=== PATIENT | female | born 1950 | race Caucasian/White ===

== ENCOUNTER 2019-05-26 04:20 | Inpatient (IN) ==
[2019-05-26] MEDS ORDERED: ZOSYN 4.5 GM in NS 100 ML IV ONE (04:25)
[2019-05-26] MEDS ORDERED: SOLU-MEDROL IV ONE (04:25)
--- NOTE | 2019-05-26 04:34 | PROVIDER DOCUMENTATION ---
HPI-General Adult - General Chief Complaint: Shortness of Breath Stated Complaint: SOB Time Seen by Provider: 05/26/19 04:23 Source: patient, family Allergies/Adverse Reactions: Patient Allergies Allergy/AdvReac Type Severity Reaction Status Date / Time metoprolol tartrate * Allergy ANAPHYLAXIS Verified 05/26/19 04:40 [From Lopressor] Penicillins Allergy ANAPHYLAXIS Verified 05/26/19 04:40 Sulfa (Sulfonamide Allergy ANAPHYLAXIS Verified 05/26/19 04:40 Antibiotics) nifedipine [From Procardia] AdvReac ANAPHYLAXIS Verified 05/26/19 04:40 "mycins" Allergy ANAPHYLAXIS Uncoded 05/26/19 04:40 Home Medications: Home Medication List Medication Instructions Recorded Confirmed Last Taken Type Amlodipine Besylate [Norvasc] 10 mg PO DAILY 07/11/14 05/26/19 Unknown History Levothyroxine [Synthroid] 137 mcg PO DAILY 07/11/14 05/26/19 Unknown History Montelukast [Singulair] 10 mg PO DAILY 07/11/14 05/26/19 Unknown History Omeprazole/Sodium Bicarbonate 20 mg PO DAILY 07/11/14 05/26/19 Unknown History [Zegerid 20 mg] Ergocalciferol (Vitamin D2) 50,000 unit PO DIRECTED 05/26/19 05/26/19 Unknown History [Vitamin D2] - History of Present Illness -Gen Adult Nature of Presenting Problems: Presents to the with complaints of difficulty swallowing and SOB. Son who is CLOAK ROOM ATTENDANT here at the hospital states that she was seen by her PCP Dr khan today and they were concerned about salivary gland swelling and they did a chest xr. They were supposed to go for a CT of the neck tomorrow but tonight things escalated and got worse and they decided to come in. She states she feels as if she were to throw up it would go right back down and she endorses SOB. She has not tried anything at home. She wears partial dentures. Review of Systems - Adult - REVIEW OF SYSTEMS - ADULT Constitutional: reports: see HPI Eyes: reports: no symptoms reported Ears, Nose, Mouth & Throat: reports: see HPI Cardiovascular: reports: no symptoms reported Respiratory: reports: see HPI Gastrointestinal: reports: see HPI, nausea Genitourinary: reports: no symptoms reported Musculoskeletal: reports: no symptoms reported Integumentary: reports: no symptoms reported Neurological: reports: no symptoms reported Psychiatric: reports: no symptoms reported Endocrine: reports: no symptoms reported Hematologic/Lymphatic: reports: no symptoms reported Allergic/Immunologic: reports: no symptoms reported All Other Systems: Reviewed and Negative Past History - Adult - PAST MEDICAL HISTORY-ADULT Review of Records: reports: Old Records Reviewed Major Childhood Illnesses: reports: denies history Cardiovascular: reports: HTN, hyperlipidemia Gastrointestinal: reports: GERD Musculoskeletal: reports: fibromyalgia Endocrine/Immune: reports: thyroid disorder - PRIOR SURGERIES/PROCEDURES Surgical/Procedure History: reports: appendectomy, cholecystectomy, hysterectomy - IMMUNIZATION STATUS Childhood Immunizations: See Nurse Assessment Flu Vaccine: See Nurse Assessment Physical Exam-General - PHYSICAL EXAM-ADULT Initial Vital Signs Reviewed: Yes - CONSTITUTIONAL General Appearance: alert, moderate distress, anxious - EYES Eyes: PERRL/EOMI - HEAD, EARS, NOSE, MOUTH & THROAT HENMT: dental decay, other (unable to open mouth fully, no abscess under tongue) . negative: angioedema - NECK Neck: other (large swellign on right towards midline that is hard and tender to touch) - RESPIRATORY Respiratory: chest non-tender, lungs clear, normal breath sounds, no accessory muscle use, respiratory distress (mild) - CARDIOVASCULAR Cardiovascular: normal peripheral pulses, no murmur, tachycardia - GASTROINTESTINAL (ABDOMEN) Abdominal Exam: normal bowel sounds, non tender, soft - MUSCULOSKELETAL Back Exam: normal inspection Extremity: normal gait, normal inspection - SKIN Integumentary: normal color, warm/dry. negative: rash - NEUROLOGIC Neurologic: grossly normal - PSYCHIATRIC Psych/Mental Status: normal mood/affect, oriented x 3 Progress - PLAN OF CARE/RESULTS Progress/Plan/Lab Results: Vital Signs - 8 hr 05/26/19 04:24 Temperature 98.8 F Pulse Rate 115 H Respiratory Rate 10 L Blood Pressure 167/78 O2 Sat by Pulse Oximetry 98 Orders Category Date Time Status CT MAXILLOFACIAL(SINUS) W/CON [CT] Stat Exams 05/26/19 04:25 Ordered BLOOD CULTURE [BLDCUL] Stat Lab 05/26/19 04:24 Ordered CBC WITH ELECTRONIC DIFF [HEME] Stat Lab 05/26/19 04:23 Uncollected COMPREHENSIVE METABOLIC PANEL [CHEM] Stat Lab 05/26/19 04:23 Uncollected LACTATE, PLASMA [CHEM] Stat Lab 05/26/19 04:24 Uncollected PROTIME WITH INR [COAG] Stat Lab 05/26/19 04:23 Uncollected PTT [COAG] Stat Lab 05/26/19 04:23 Uncollected Methylprednisolone Sod Succ [Solu-Medrol] Med 05/26/19 04:25 Discontinued 125 mg IV NOW ONE Piperacillin/Tazobactam [Zosyn] 4.5 gm Med 05/26/19 04:25 Active 0.9% Sodium Chloride Inj [Ns] 100 ml IV NOW Initial concern to ludwigs, however was more right sided and less palate involved. Patient started on sepsis protocol and given zosyn, solumedrol and labs and cultures drawn. Taken to CT that is showing no drainable abscess or fluid collection and multiple stones c/w sialoadenitis. Patients son is CLOAK ROOM ATTENDANT for Dr Khan who is her PCP. He spoke personally to Dr khan who accepts patient for admission. Wants her transferred to [facility] and consult ENT. Requested pull floor bed for her. Patient stable at this time. Result Diagrams: 05/26/19 04:35 05/26/19 04:35 - CT/MRI 1 CT Study: Facial Bones (enlarged right submandibular gland with soft tissue edema. Submandibular gland stone measuring 3mm. Distal right submandibular gland duct stone measuring 4mm. Findings consistent with sialodenitis. Left submandibular gland stone measuring 2.5mm.) - CONSULTS/PCP/HOSPITALIST Notification #1 *Consult/PCP/Hospitalist*: Dr Khan Time Discussed: 06:07 Consult Disposition: Admit (transfer to [facility] and further orders will be placed by their team) Departure - Departure Date of Disposition Decision: 05/26/19 Time of Disposition Decision: 06:07 DIAGNOSIS: Sialoadenitis, Sepsis Disposition: ADMITTED INPATIENT 09 Certified Medical Emergency: Emergent Condition: Fair Referrals and Follow-Ups: None,PCP [Primary Care Provider] - - Critical Care Note This patient required my direct & personal management of CC.: Yes Total Time (mins): 35 (monitor for airway, continuous reval and sepsis guidelines) Critical Care Statement: This patient required my direct personal management to treat or rule out processes, the absence of which, could potentiallly result in sudden, clinically significant life or limb threatening deterioration. Attestation - Physician/ ANUPAMA Attestation Patient care was provided by Advanced Practice Provider:: No The physician spent face to face time with patient:: Yes Advanced Practice Provider documentation review:: Supervising physician onsite and consulted in the evaluation and care of this patient. The physician did have a face to face encounter with the patient.
[2019-05-26] MEDS ORDERED: ZOFRAN IV ONE ×2 (04:37→05:31)
[2019-05-26 05:30] LABS: AGAP 18; ALKALINE PHOSPHATASE 129 U/L (32-104); BUN 12 mg/dL (8-22); CALCIUM 9.7 mg/dL (8.8-10.2); CHLORIDE 100 mmol/L (98-107); COSMO 279; CREATININE 0.9 mg/dL (0.5-0.9); ESTIMATED GFR > 60; GLUCOSE 154 mg/dL (70-104); GOT 28 U/L (10-30); GPT 21 U/L (10-36); POTASSIUM 3.7 mmol/L (3.5-5.1); SODIUM 138 mmol/L (136-145); TCO2 20 mmol/L (25-35); TOTAL PROTEIN 8.1 g/dL (6.3-8.3)
[2019-05-26] MEDS ORDERED: DILAUDID IV ONE ×2 (05:30→07:39)
[2019-05-26 05:38] LABS: BASO# 0.03 X1000 (0.0-0.2); BASO% 0.1 % (0.0-0.8); EOS# 0.11 X1000 (0.0-0.7); EOS% 0.5 % (0.0-10.0); HEMATOCRIT 38.4 % (37.0-47.0); HEMOGLOBIN 12.1 g/dL (12.0-16.0); IMM GRAN# 0.07 X1000 (0.0-0.04); IMM GRAN% 0.3 % (0.0-0.5); LYMPH# 1.93 X1000 (1.2-3.4); LYMPH% 8.6 % (20.5-51.1); MCH 27.4 PG (27-31); MCHC 31.5 g/dL (33-37); MCV 86.9 FL (81-99); MONO# 3.43 X1000 (0.11-0.59); MONO% 15.4 % (1.7-9.3); MPV 11.1 FL (7.4-10.4); NEUT# 16.76 X1000 (1.4-6.5); NEUT% 75.1 % (42.2-75.2); PLT 460 X1000 (130-400); RBC 4.42 XMIL (4.2-5.4); RDW 17.4 % (11.5-14.5); WBC 22.33 X1000 (4.8-10.8)
[2019-05-26 05:48] LABS: INR 0.97; PROTIME 13.4 Seconds (11.0-16.0); PTT 29.2 Seconds (22.3-41.8)
[2019-05-26] MEDS ORDERED: NS 1,000 ML IV ONE ×3 (06:05→06:06)
[2019-05-26] MEDS ORDERED: TORADOL IV ONE (07:23)
--- NOTE | 2019-05-26 08:05 | Diag Imaging Result Doc PS360 ---
EXAM: CT NECK W/WO CONTRAST 05/26/2019 HISTORY: r/o Jason's, right swelling and induration, SOB TECHNIQUE: This exam was performed using automated exposure control, adjustment of mA or kV according to patient size, and/or use of iterative reconstruction technique. COMMENT: There are no previous studies available for comparison. Some detail in the oropharynx is obscured by beam hardening artifact from the patient's dental work. There is edema in the fat deep to the platysma on the right surrounding the submandibular gland, which appears to be enlarged compared to the left gland. There are apparent calcifications in the right submandibular gland and another is apparently present presumably in the distal duct seen best on image 93. This calculus measures almost 5 mm in greatest dimension. There is ductal dilatation. There is an enlarged submandibular node on the right measuring almost 16 mm in long axis. There is some effacement of the right vallecula. There is no evidence of a discrete abscess. The epiglottis is not enlarged. The airway appears patent. The nasopharynx and paranasal sinuses are unremarkable. The parotid glands are symmetrical in appearance. The visualized portion of the chest is unremarkable. The regional skeleton is unremarkable. IMPRESSION: Right submandibular sialoadenitis and sialolithiasis Electronically signed by Eric Siegel 05/26/2019 8:03 AM
[2019-05-26] MEDS ORDERED: TORADOL IV PRN (08:39)
[2019-05-26] MEDS ORDERED: VANCOMYCIN IV PER PHARMACY MISC SCH (08:45)
[2019-05-26] MEDS: NEXIUM IV SCH (10:37)
[2019-05-26] MEDS: LOVENOX SUBQ SCH (10:37)
[2019-05-26] MEDS: SODIUM CHLORIDE 0.9% INJ SCH (10:37)
[2019-05-26] MEDS: NS 1,000 ML IV SCH (10:38)
[2019-05-26] MEDS ORDERED: VANCOMYCIN 2 GM in NS 500 ML IV SCH (11:00)
[2019-05-26 12:33] LABS: URINE SOURCE CLEAN CATCH
[2019-05-26 12:40] LABS: BILIRUBIN URINE NEGATIVE (NEGATIVE); BLOOD URINE NEGATIVE (NEGATIVE); COLOR YELLOW; GLUCOSE URINE NEGATIVE (NEGATIVE); KETONE URINE NEGATIVE (NEGATIVE); LEUKOCYTES URINE NEGATIVE (NEGATIVE); NITRITE URINE NEGATIVE (NEGATIVE); PROTEIN URINE 30 mg/dL (NEGATIVE); TURBIDITY URINE CLEAR (CLEAR); UROBILINOGEN URINE NORMAL (NORMAL)
[2019-05-26 12:41] LABS: UR EPITHELIAL CELLS <10 /HPF (<10); URINE BACTERIA NEGATIVE /HPF; URINE RBC <10 /HPF (<10); URINE WBC <10 /HPF (<10)
[2019-05-26 13:34] LABS: SP GRAVITY URINE 1.015
--- NOTE | 2019-05-26 14:45 | CONSULTATION ---
DATE OF CONSULTATION: 05/26/2019 HISTORY OF PRESENT ILLNESS: This is a 68-year-old lady who was admitted from the ER early this morning with swelling of the right submandibular gland. She has had progressive swelling and pain. Also some shortness of breath and dysphagia. While in the emergency room she underwent a CT scan of the neck with and without contrast. The report revealed a right submandibular gland stone in the area of the floor of mouth. To my review of the scan today, there is swelling of the right submandibular gland and soft tissues. There is a stone as described by the report. There is a node that is also enlarged adjacent to the gland. The airway is normal. There may be a little swelling around the base of tongue area, but the epiglottis is normal. The vocal cords were normal. The laryngeal airway is normal. The fat planes in the larynx are normal as well. She is much better this morning after her IV antibiotic treatment. She still has swelling and tenderness. Her trismus that was present is much better as well. PHYSICAL EXAMINATION: Nose unremarkable. Oral cavity and oropharynx, the floor of mouth is soft. I cannot feel the stone. There is some swelling, but it is not a tremendous amount of swelling. The right submandibular gland is large and tender intraorally. The palpation is near normal palpating from the neck. The gland is swollen and tender with soft tissue edema. IMPRESSION: Right submandibular gland sialadenitis. By CT there is no abscess. Also by CT the airway is normal. There is a submandibular stone as well. RECOMMENDATIONS: At this point, she is improved. Would continue IV antibiotics as well as IV steroid. At this point, would delay any surgical intervention until the infection is resolved. If she develops some sort of abscess, then that would obviously need to be addressed but for now, continued medical therapy is the best treatment going forward and she is actually improved in the short time that she has been on IV antibiotics. cc: MD Daniel Valenzuela MD
[2019-05-26] MEDS: ZOFRAN IV PRN (14:54)
[2019-05-26] MEDS: DILAUDID IV PRN ×2 (14:54→23:05)
[2019-05-26] MEDS ORDERED: PHENERGAN IV ONE (17:06)
[2019-05-26] MEDS ORDERED: SODIUM CHLORIDE 0.9% INJ ONE (17:06)
--- NOTE | 2019-05-26 18:45 | Diag Imaging Result Doc PS360 ---
EXAM: CHEST-1 VIEW 05/26/2019 HISTORY: sepsis TECHNIQUE: AP portable upright at 1835 COMMENT: The inspiration is suboptimal. Considering differences in technique and inspiration there has been no significant change since 07/11/2014. There is a fairly large hiatal hernia. IMPRESSION: Stable chest Electronically signed by Eric Siegel 05/26/2019 6:42 PM
[2019-05-26] MEDS ORDERED: LEVAQUIN 500 MG/D5W 500 MG/100 ML IVPB IV ONE (19:30)
[2019-05-26] MEDS: PHENERGAN IV PRN (23:05)
[2019-05-27] MEDS: NS 1,000 ML IV SCH ×5 (02:14→22:33)
--- NOTE | 2019-05-27 06:10 | HISTORY AND PHYSICAL ---
CHIEF COMPLAINT: Intractable right-sided neck pain. 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 Patient was diagnosed with acute submandibular sialoadenitis. In my office, CBC was normal. SMA 7 was normal. No fever. She was given Keflex, sulindac, and Diflucan. Ordered CT neck and also Sjgren's antibodies since it is intermittent pain. Pain is also radiating to the right side of the ear. The patient is doing better early head start director. At 2:30, she started having severe pain, not able to swallow, and came to the emergency room at [facility]. Emergency Room workup reviewed with white cell count of 22,000. Lactate was high, and also started on IV fluids, IV Zosyn, and IV steroids. She was subsequently transferred to [facility]. Dr. Ponce was consulted. The patient has extreme pain, and given Dilaudid as well as Phenergan for nausea. She is eating popsicles. No respiratory distress. No stridor noted. Continue on IV vancomycin and Levaquin. I did discuss with her son at bedside. Agreed with the plan of care, and appreciated Dr. Ponce consult. As a result, a hospital admission was warranted. PAST MEDICAL HISTORY: Hyperlipidemia, essential tremor, fibromyalgia, acid reflux disease, hypertension, hypothyroidism, chronic back pain, acid reflux disease, and vitamin D deficiency. PAST SURGICAL HISTORY: Right myringotomy tube and hysterectomy. MEDICATIONS: 1. Synthroid 137 mcg daily. 2. Topamax 100 daily. 3. Vitamin D 40408 once a week. ALLERGIES: 1. Bactrim. 2. Cleocin. 3. Morphine. 4. Erythromycin. 5. Guaifenesin with codeine. 6. Penicillin. 7. Procardia. SOCIAL HISTORY: Single with 1 son. 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 No smoking. No alcohol. FAMILY HISTORY: Father at the age of 76. Mom at 62 of renal failure. Brother had liver transplant. HEALTH MAINTENANCE: She is allergic to eggs. Mammography in 2019. REVIEW OF SYSTEMS: HEENT: Right-sided pain going to the ear and trouble swallowing. No difficulty in breathing. No chest pain, shortness of breath, PND, or orthopnea. GI: History of nausea. No vomiting or abdominal pain. No bleeding per rectum. : No history of hesitancy, frequency, or dysuria. No swelling of legs. No joint pain. Neurologic: No focal symptoms or weakness. PHYSICAL EXAMINATION: VITAL SIGNS: She is afebrile. Tachycardic. Vitals are stable. HEENT: Atraumatic, normocephalic. Pupils equal, and reactive to light. Middle ear tube noted on the right side. Tender in the right submandibular gland. NECK: Supple. No lymphadenopathy. CHEST: Clear. Bilateral air entry. HEART: Sounds are regular. ABDOMEN: Belly is soft and nontender. Good bowel sounds. No peripheral edema or cyanosis. No obvious neurological deficits. INVESTIGATIONS: White cell count 22.3, hematocrit 38, and platelets 460,000. PT 13, INR 0.97. Sodium 138, potassium 3.7, chloride 100, BUN 12, creatinine 0.9, and glucose 154. Liver function tests were normal. Plasma lactate 4.6. Urinalysis is clear. CT neck reported right submandibular sialoadenitis with stones noted. Chest x-ray stable. ASSESSMENT AND PLAN: 1. A 68-year-old white female admitted to the hospital with right submandibular sialoadenitis recurrent due to stones. Appreciate ENT consult. No symptoms, signs or respiratory compromise noted. Continue IV vancomycin and Levaquin. 2. Follow up on the labs. 3. IV fluids. 4. DVT and GI prophylaxis with Lovenox and Protonix. 5. Pain control with hydromorphone and nausea with Phenergan. 6. We will slowly reconcile home medications. 7. We will check the labs in the morning, and discussed the plan of care with family and at bedside. cc: Daniel Galloway MD
[2019-05-27 07:39] LABS: BASO# 0.02 X1000 (0.0-0.2); BASO% 0.1 % (0.0-0.8); EOS# 0.04 X1000 (0.0-0.7); EOS% 0.2 % (0.0-10.0); HEMATOCRIT 36.4 % (37.0-47.0); HEMOGLOBIN 11.2 g/dL (12.0-16.0); IMM GRAN% 0.4 % (0.0-0.5); LYMPH# 1.53 X1000 (1.2-3.4); LYMPH% 6.8 % (20.5-51.1); MCH 27.6 PG (27-31); MCHC 30.8 g/dL (33-37); MCV 89.7 FL (81-99); MONO# 3.45 X1000 (0.11-0.59); MONO% 15.3 % (1.7-9.3); MPV 10.8 FL (7.4-10.4); NEUT# 17.47 X1000 (1.4-6.5); NEUT% 77.2 % (42.2-75.2); PLT 414 X1000 (130-400); RBC 4.06 XMIL (4.2-5.4); RDW 17.5 % (11.5-14.5); WBC 22.61 X1000 (4.8-10.8)
[2019-05-27 07:56] LABS: CALCIUM 8.8 mg/dL (8.8-10.2); CREATININE 1.3 mg/dL (0.5-0.9); POTASSIUM 4.9 mmol/L (3.5-5.1)
[2019-05-27] MEDS: NEXIUM IV SCH (08:27)
[2019-05-27] MEDS: SODIUM CHLORIDE 0.9% INJ SCH (08:27)
[2019-05-27] MEDS: LOVENOX SUBQ SCH (08:31)
[2019-05-27 08:44] LABS: BANDS 4 % (0-1); LYMPHS 6 % (21-51); MONO 2 % (1-9); SEGS 82 % (42-75)
[2019-05-27] MEDS: PHENERGAN IV PRN (13:47)
[2019-05-27] MEDS: DILAUDID IV PRN ×3 (13:48→19:42)
[2019-05-27] MEDS: VANCOMYCIN 1,500 MG in NS 250 ML IV SCH (18:31)
[2019-05-27] MEDS: ZOFRAN IV PRN (18:33)
[2019-05-27] MEDS: LEVAQUIN 500 MG/D5W 500 MG/100 ML IVPB IV SCH (20:39)
--- NOTE | 2019-05-27 22:54 | PROGRESS NOTE ---
DATE: 05/27/2019 SUBJECTIVE: The patient is still in lot of pain. Not eating well. No shortness of breath. The patient was seen twice today and I appreciated Dr. Ponce consult. Still has a hard tender submandibular gland swelling noted. Unable to move the jaw. A lot of trismus noted. PHYSICAL EXAMINATION: Temperature is 98 degrees. Tachycardic. Vitals are stable, 97%.HEENT: Tongue is in midline. A lot of trismus on the right side. No fluctuations. No redness noted. Chest: Clear. Heart: Sounds are regular. Abdomen: Belly is soft, nontender. Neurologic: No obvious deficits. INVESTIGATIONS: White cell count 22.61, hematocrit 36, platelets 414,000. SMA 7 BUN 26, creatinine 1.3. Urinalysis is clear. Blood cultures are pending. ASSESSMENT AND PLAN: 1. Right submandibular sialadenitis with sepsis. 2. Systemic inflammatory response syndrome. Blood cultures are pending due to stone disease. Continue IV vancomycin and Levaquin. 3. Review continue IV fluids, pain control. We will repeat the labs in the morning. 4. Deep vein thrombosis and gastrointestinal prophylaxis as per order sheet. We will continue to hold the home medications. May give half the dose of IV Synthroid in the morning if she continues to be a problem of swallowing. Consider if no improvement in white cell count, Dr. Long consult and repeat the CT of the neck. Discussed with the patient as well as the son. LEVEL OF DOCUMENTATION: 35 minutes. cc: Daniel Galloway MD
[2019-05-28 07:26] LABS: BASO# 0.02 X1000 (0.0-0.2); BASO% 0.2 % (0.0-0.8); EOS# 0.37 X1000 (0.0-0.7); EOS% 3.2 % (0.0-10.0); HEMATOCRIT 33.8 % (37.0-47.0); HEMOGLOBIN 10.3 g/dL (12.0-16.0); IMM GRAN# 0.02 X1000 (0.0-0.04); IMM GRAN% 0.2 % (0.0-0.5); LYMPH# 1.26 X1000 (1.2-3.4); LYMPH% 10.9 % (20.5-51.1); MCH 27.3 PG (27-31); MCHC 30.5 g/dL (33-37); MCV 89.7 FL (81-99); MONO# 1.56 X1000 (0.11-0.59); MONO% 13.5 % (1.7-9.3); MPV 10.8 FL (7.4-10.4); PLT 252 X1000 (130-400); RBC 3.77 XMIL (4.2-5.4); RDW 17.7 % (11.5-14.5); WBC 11.53 X1000 (4.8-10.8)
[2019-05-28 07:45] LABS: AGAP 11; BUN 20 mg/dL (8-22); CALCIUM 8.3 mg/dL (8.8-10.2); CHLORIDE 105 mmol/L (98-107); COSMO 278; CREATININE 0.8 mg/dL (0.5-0.9); ESTIMATED GFR > 60; GLUCOSE 99 mg/dL (70-104); POTASSIUM 3.8 mmol/L (3.5-5.1); SODIUM 138 mmol/L (136-145); TCO2 22 mmol/L (25-35)
[2019-05-28] MEDS: LOVENOX SUBQ SCH (08:49)
[2019-05-28] MEDS: NEXIUM IV SCH (08:49)
[2019-05-28] MEDS: SODIUM CHLORIDE 0.9% INJ SCH (08:51)
[2019-05-28] MEDS: DILAUDID IV PRN ×3 (09:10→20:48)
[2019-05-28] MEDS: PHENERGAN IV PRN ×2 (09:12→20:47)
[2019-05-28] MEDS: SODIUM CHLORIDE 0.9% INJ PRN ×3 (09:13→20:49)
--- NOTE | 2019-05-28 14:12 | PROGRESS NOTE ---
DATE: 05/27/2019 Patient is seen and examined today. There was much less soft tissue swelling in the right neck. The submandibular gland and submandibular node is more palpable. It is firm. There is no evidence of fluctuance. IMPRESSION: She has had improvement in the last 24 hours. At this point, would continue current therapy. There is no evidence of abscess and at this point, no surgical treatment indicated. cc: MD Daniel Valenzuela MD
[2019-05-28] MEDS: TYLENOL PO PRN (14:58)
[2019-05-28] MEDS: NS 1,000 ML IV SCH (18:47)
--- NOTE | 2019-05-28 19:09 | PROGRESS NOTE ---
DATE: 05/28/2019 SUBJECTIVE: The patient is a little better. I appreciate Dr. Ponce's input. Quite a bit of swelling of the right submandibular area noted. No fluctuations. Low-grade fever, not able to eat, and a lot of pain upon opening the mouth. PHYSICAL EXAMINATION: Temperature is 98 degrees. Vitals are stable.HEENT: Right submandibular swelling. No abscess noted. Chest: Clear. Heart sounds are regular. Belly is soft, nontender. No obvious deficits. INVESTIGATIONS: CBC: White cell count 11.5, hematocrit 33.8, platelets 252,000. SMA 7 is normal. Blood cultures are no growth. ASSESSMENT AND PLAN: 1. Right submandibular sialadenitis. Improving on Levaquin and vancomycin. 2. IV fluids. 3. Pain control. 4. Lozenges as discussed with the caregiver. Continue to monitor CBC, SMA 7. If it fails to deflate, we will consider outpatient stone extraction, continue IV antibiotics for the weekend, slowly tolerate a soft puree diet as needed. Will check the labs in the morning. LEVEL OF DOCUMENTATION: 25 minutes. cc: Daniel Galloway MD
[2019-05-28] MEDS: LEVAQUIN 500 MG/D5W 500 MG/100 ML IVPB IV SCH (20:47)
[2019-05-29] MEDS: VANCOMYCIN 1,500 MG in NS 250 ML IV SCH (01:59)
[2019-05-29] MEDS: SODIUM CHLORIDE 0.9% INJ PRN ×3 (03:25→22:09)
[2019-05-29] MEDS: PHENERGAN IV PRN ×3 (03:25→22:07)
[2019-05-29] MEDS: DILAUDID IV PRN ×2 (03:26→13:44)
[2019-05-29] MEDS: TYLENOL PO PRN ×2 (03:27→12:35)
[2019-05-29 07:54] LABS: BASO# 0.03 X1000 (0.0-0.2); BASO% 0.3 % (0.0-0.8); EOS# 0.45 X1000 (0.0-0.7); EOS% 3.9 % (0.0-10.0); HEMATOCRIT 33.8 % (37.0-47.0); HEMOGLOBIN 10.5 g/dL (12.0-16.0); IMM GRAN# 0.04 X1000 (0.0-0.04); IMM GRAN% 0.3 % (0.0-0.5); LYMPH# 1.26 X1000 (1.2-3.4); LYMPH% 10.9 % (20.5-51.1); MCH 27.6 PG (27-31); MCHC 31.1 g/dL (33-37); MCV 88.7 FL (81-99); MONO# 1.15 X1000 (0.11-0.59); MONO% 9.9 % (1.7-9.3); MPV 10.7 FL (7.4-10.4); NEUT# 8.66 X1000 (1.4-6.5); NEUT% 74.7 % (42.2-75.2); PLT 241 X1000 (130-400); RBC 3.81 XMIL (4.2-5.4); RDW 17.6 % (11.5-14.5); WBC 11.59 X1000 (4.8-10.8)
[2019-05-29 08:03] LABS: AGAP 11; BUN 10 mg/dL (8-22); CALCIUM 8.2 mg/dL (8.8-10.2); CHLORIDE 104 mmol/L (98-107); COSMO 277; CREATININE 0.7 mg/dL (0.5-0.9); ESTIMATED GFR > 60; GLUCOSE 106 mg/dL (70-104); POTASSIUM 3.6 mmol/L (3.5-5.1); SODIUM 139 mmol/L (136-145); TCO2 24 mmol/L (25-35)
--- NOTE | 2019-05-29 11:06 | PROGRESS NOTE ---
DATE: 05/29/2019 SUBJECTIVE: A 68-year-old white female patient admitted with pain and swelling of the right submandibular gland, not responding to outpatient treatment. The patient also had leukocytosis, pain was getting much more intense. The patient was evaluated at [facility]. Because the patient was not responding to outpatient treatment and worsening of her symptoms, she was admitted for inpatient care. The patient was evaluated by ENT, with recommendations noted. The patient is doing some better. The patient is still have swelling, pain, and difficulty eating. She denied any high-grade fever. T-max is 99.4 degrees. No nausea or vomiting. She denied any typical chest pain or palpitations. The patient does have polyuria and polydipsia. No abdominal pain. Denied any diarrhea, or blood or mucus in the stool. No heat or cold intolerance. The patient's admission history and physical noted. PAST MEDICAL HISTORY: Essential tremor, hyperlipidemia, fibromyalgia, acid reflux, hypertension, hypothyroidism, vitamin D deficiency. OBJECTIVE: Vitals: Blood pressure 138/57, pulse 80, respirations 20, temperature 99.4 degrees. HEENT: The patient does have swelling and induration of the right submandibular area, local tenderness. Neck: Supple. Lungs: Bilateral good air entry present. CVS: S1 and S2 heard. Abdomen: Soft, globular. Bowel sounds present. Extremities: No cyanosis or clubbing. No acute DVT. INSECTICIDE SUPERVISOR: Alert, awake, able to move all 4 limbs. CONSIDERATION: 1. Right mandibular sialadenitis, slowly responding to treatment. 2. Hypertension. 3. Gastritis and reflux disease. 4. Morbid obesity. 5. Hypothyroidism. 6. We will continue current antibiotic treatment, pain management, close observation. LABORATORY DATA: Laboratory data done today showed WBC count 11.59, hemoglobin 10.5, hematocrit 33.8, platelet count 241,000. Electrolytes with potassium 3.6. The rest were benign. PLAN: Considering low-normal potassium, I am going to supplement her potassium. We will continue current treatment, close observation. Overall plan discussed with the patient and she is in agreement. I think steroid may help but the patient was reluctant because of the side effects. cc: MD Daniel Krishnan MD
[2019-05-29] MEDS: NEXIUM IV SCH (12:36)
[2019-05-29] MEDS: KLOR-CON PO SCH (12:36)
[2019-05-29] MEDS: LOVENOX SUBQ SCH (12:36)
[2019-05-29] MEDS: NS 1,000 ML IV SCH ×2 (15:49→15:50)
[2019-05-29] MEDS: LEVAQUIN 500 MG/D5W 500 MG/100 ML IVPB IV SCH (20:04)
[2019-05-30] MEDS: NS 1,000 ML IV SCH ×2 (00:50→10:54)
[2019-05-30] MEDS: VANCOMYCIN 1,500 MG in NS 250 ML IV SCH (01:30)
[2019-05-30] MEDS: ZOFRAN IV PRN (01:30)
[2019-05-30] MEDS: DILAUDID IV PRN ×4 (01:30→22:14)
[2019-05-30] MEDS: NEXIUM IV SCH (10:51)
[2019-05-30] MEDS: LOVENOX SUBQ SCH (10:51)
[2019-05-30] MEDS: KLOR-CON PO SCH (10:52)
[2019-05-30] MEDS: SODIUM CHLORIDE 0.9% INJ SCH (10:52)
[2019-05-30] MEDS ORDERED: KLOR-CON PO ONE (12:41)
--- NOTE | 2019-05-30 13:04 | PROGRESS NOTE ---
DATE: 05/30/2019 SUBJECTIVE: Ms. Alexander is doing better. Swelling and soreness in the right mandibular area is getting better. The patient does have some chills, but no high-grade fever. The patient does have some nausea. No vomiting. Oral intake is fair. No typical chest pain or palpitation. Patient admitted with inflammation, infection of submandibular gland. OBJECTIVE: Vital Signs: Noted. Neck: Supple. No JVD. HEENT: The patient does have tenderness and induration of right submandibular gland, though it is much less compared to yesterday. Lungs: Bibasilar crepitations. Heart: S1 and S2 heard. Abdomen: Soft, globular. Bowel sounds present. Extremities: No cyanosis, clubbing. No acute DVT. SUPERINTENDENT DISTRIBUTION: Alert, awake, able to move all 4 limbs. LABORATORY DATA: Lab data done today shows WBC count 11.59, hemoglobin 10.5, hematocrit 33.8, platelet count 241,000. Electrolytes fairly benign. Potassium was 3.6. CONSIDERATION: Infection of submandibular gland, hypertension, gastritis and reflux disease, morbid obesity, hypothyroidism. The patient had low-normal potassium. Lab and medication noted. Will continue current treatment. Overall plan discussed with the patient, and she is in agreement. I am going to give her an extra dose of potassium today. cc: MD Daniel Krishnan MD
[2019-05-30] MEDS: PHENERGAN IV PRN ×2 (13:39→22:15)
[2019-05-30] MEDS: SODIUM CHLORIDE 0.9% INJ PRN (13:39)
[2019-05-30] MEDS ORDERED: POTASSIUM CHLORIDE 20 MEQ/SWI 20 MEQ/100 ML IVPB IV ONE (16:41)
[2019-05-30] MEDS ORDERED: DILAUDID IV SCH (17:00)
[2019-05-30] MEDS: LEVAQUIN 500 MG/D5W 500 MG/100 ML IVPB IV SCH (22:15)
[2019-05-31] MEDS: NS 1,000 ML IV SCH ×3 (02:09→16:28)
[2019-05-31] MEDS: VANCOMYCIN 1,500 MG in NS 250 ML IV SCH (02:20)
[2019-05-31] MEDS: DILAUDID IV PRN ×3 (04:12→19:05)
[2019-05-31] MEDS: NEXIUM IV SCH (09:53)
[2019-05-31] MEDS: SODIUM CHLORIDE 0.9% INJ SCH (09:53)
[2019-05-31] MEDS: KLOR-CON PO SCH (09:53)
[2019-05-31] MEDS: LOVENOX SUBQ SCH (09:53)
[2019-05-31] MEDS: SOLU-MEDROL IV SCH ×2 (15:24→23:55)
[2019-05-31] MEDS: LEVAQUIN 500 MG/D5W 500 MG/100 ML IVPB IV SCH (21:31)
--- NOTE | 2019-05-31 22:10 | CONSULTATION ---
DATE OF CONSULTATION: 05/31/2019 HISTORY OF PRESENT ILLNESS: The patient is seen and examined today. She has had some improvement over the weekend on IV antibiotics and steroids. She is still having occasional dysphagia and has intermittent pain as well. She feels like she is 60 to 65 percent better than she was on admission. PHYSICAL EXAM: Today, with the fiberoptic scope, the nasopharynx is normal. Hypopharynx and larynx are normal. Airway is normal. The lateral pharyngeal wall, base of tongue and hypopharynx on the right side is also normal. Oral cavity, oropharynx, the floor of the mouth has some purulent drainage on the right side. There was still inflammation in the floor mouth generally. It is much less than at admission. On palpation of the floor of mouth, there was no palpable stone that is easily identifiable.Neck: There was much less edema in the right side of the neck. It now feels like it is primarily the right submandibular gland which is probably 4 x 3 cm in measurement. It is tender to touch, but not this tender as it was on admission. IMPRESSION: Right submandibular sialoadenitis with submandibular stone. By CT, she has a stone in the floor of the mouth and a stone at the hilum of the gland. She is improved on current medications. Her hypopharynx and larynx are normal. There has been some discussion of removal of the floor of mouth stone. At this point, it is still difficult to identify because of the edema of the floor of mouth. We could undergo general anesthetic and search for the floor mouth stone, but at this point, I think it would be prudent to continue medical therapy. It may get to the point where that would be beneficial, but for now I think that we should continue the current antibiotic and steroid regimen for another 36 to 48 hours and then see where we are. cc: MD Daniel Valenzuela MD
[2019-06-01] MEDS: VANCOMYCIN 1,500 MG in NS 250 ML IV SCH (04:40)
[2019-06-01] MEDS: NS 1,000 ML IV SCH ×2 (04:46→20:20)
--- NOTE | 2019-06-01 06:21 | PROGRESS NOTE ---
DATE: 05/31/2019 SUBJECTIVE: Events noted. The patient continues to have swelling on the right submandibular gland, not able to pass the stone. The stone is very close to the floor of the mouth. Another stone in the hilum. Continue to massage and sour candies as described. OBJECTIVE: Low-grade fever. Vitals are stable.HEENT: On exam, not able to open the mouth. Right submandibular swelling still present. Neck: Supple. No lymphadenopathy. Chest: Clear. Heart: Sounds are regular. ASSESSMENT AND PLAN: Right submandibular sialoadenitis , not able to get out with conservative management. I spoke to Dr. Zimmerman and Dr. Ponce. They want to initiate IV steroids, started on prednisone 40 mg IV q.8. Continue on IV Levaquin and vancomycin. Repeat the CBC in the morning. DVT and GI prophylaxis as per order sheet. Continue IV fluids, and will follow up. LEVEL OF DOCUMENTATION: 25 minutes. cc: Daniel Galloway MD MTDD
[2019-06-01 07:11] LABS: EOS# 0.02 X1000 (0.0-0.7); EOS% 0.3 % (0.0-10.0); HEMATOCRIT 34.2 % (37.0-47.0); HEMOGLOBIN 10.5 g/dL (12.0-16.0); IMM GRAN# 0.03 X1000 (0.0-0.04); IMM GRAN% 0.5 % (0.0-0.5); LYMPH# 0.56 X1000 (1.2-3.4); LYMPH% 8.5 % (20.5-51.1); MCH 26.6 PG (27-31); MCHC 30.7 g/dL (33-37); MCV 86.8 FL (81-99); MONO# 0.17 X1000 (0.11-0.59); MONO% 2.6 % (1.7-9.3); MPV 10.4 FL (7.4-10.4); NEUT% 88.1 % (42.2-75.2); PLT 220 X1000 (130-400); RBC 3.94 XMIL (4.2-5.4); RDW 17.1 % (11.5-14.5); WBC 6.58 X1000 (4.8-10.8)
[2019-06-01] MEDS: SODIUM CHLORIDE 0.9% INJ SCH (10:43)
[2019-06-01] MEDS: NEXIUM IV SCH (10:43)
[2019-06-01] MEDS: LOVENOX SUBQ SCH (10:44)
[2019-06-01] MEDS: POTASSIUM CHLORIDE 10% LIQUID PO SCH (10:44)
[2019-06-01] MEDS: DILAUDID IV PRN ×2 (10:55→18:24)
--- NOTE | 2019-06-01 14:58 | PROGRESS NOTE ---
DATE: 06/01/2019 SUBJECTIVE: She is much better today after the IV Solu-Medrol. OBJECTIVE: On exam, the floor of mouth is less edematous. With bimanual palpation, still could not feel a stone within intraoral access for removal. Right submandibular gland is swollen, but continues to decrease in size, and the soft tissue around the gland is much more normal. IMPRESSION: Right sialadenitis, improved on the intravenous Solu-Medrol. Still no palpable stone, which makes exploration of the floor of mouth a less productive option. RECOMMENDATION: At this point, she is much improved. Would continue steroid and antibiotic for 24 more hours. At that time, if she continues as much improvement as she has since yesterday, she may be able to be discharged on p.o. antibiotics with a Medrol Dosepak and followup in my office in a week. cc: MD Daniel Valenzuela MD
[2019-06-01] MEDS: SOLU-MEDROL IV SCH ×2 (15:03→22:11)
[2019-06-01] MEDS: PHENERGAN IV PRN (18:25)
[2019-06-01] MEDS: SODIUM CHLORIDE 0.9% INJ PRN (18:25)
[2019-06-01] MEDS: LEVAQUIN 500 MG/D5W 500 MG/100 ML IVPB IV SCH (20:20)
--- NOTE | 2019-06-01 21:02 | PROGRESS NOTE ---
DATE: 06/01/2019 SUBJECTIVE: The patient is doing much better after initiating the steroids. The swelling of right submandibular is much improved. The patient is able to eat some food. PHYSICAL EXAMINATION: Temperature is 98 degrees. Vitals are stable.HEENT: Within normal limits. Decreased swelling in the right submandibular gland. Chest: Clear. Heart sounds are regular. LABORATORY: CBC: White cell count 6.5, hematocrit 34, platelets 220,000. ASSESSMENT AND PLAN: Sialoadenitis, right submandibular gland. Continue IV steroids, IV fluids, DVT/GI prophylaxis. If she continues to improve, we will slowly change the antibiotics to Levaquin and Medrol Dosepak, and will follow up as an outpatient to address the stones in the submandibular gland. Advance the diet to mechanical soft diet. cc: Daniel Galloway MD
[2019-06-02] MEDS: VANCOMYCIN 2 GM in NS 500 ML IV SCH (04:50)
[2019-06-02] MEDS: SOLU-MEDROL IV SCH ×4 (04:50→22:20)
[2019-06-02 06:56] LABS: HEMOGLOBIN 10.4 g/dL (12.0-16.0); IMM GRAN# 0.04 X1000 (0.0-0.04); IMM GRAN% 0.4 % (0.0-0.5); LYMPH# 0.72 X1000 (1.2-3.4); LYMPH% 6.7 % (20.5-51.1); MCH 27.4 PG (27-31); MCHC 31.5 g/dL (33-37); MCV 86.8 FL (81-99); MONO# 0.56 X1000 (0.11-0.59); MONO% 5.2 % (1.7-9.3); MPV 10.6 FL (7.4-10.4); NEUT# 9.36 X1000 (1.4-6.5); NEUT% 87.7 % (42.2-75.2); PLT 224 X1000 (130-400); RDW 17.3 % (11.5-14.5); WBC 10.68 X1000 (4.8-10.8)
[2019-06-02 07:14] LABS: LYMPHS 16 % (21-51); SEGS 84 % (42-75)
[2019-06-02] MEDS: NS 1,000 ML IV SCH ×3 (09:08→22:23)
[2019-06-02] MEDS: SODIUM CHLORIDE 0.9% INJ SCH (09:10)
[2019-06-02] MEDS: NEXIUM IV SCH (09:10)
[2019-06-02] MEDS: LOVENOX SUBQ SCH (09:10)
[2019-06-02] MEDS: POTASSIUM CHLORIDE 10% LIQUID PO SCH (09:11)
[2019-06-02] MEDS: DILAUDID IV PRN ×2 (11:33→20:59)
[2019-06-02] MEDS: LEVAQUIN 500 MG/D5W 500 MG/100 ML IVPB IV SCH (20:58)
[2019-06-02] MEDS: PHENERGAN IV PRN (20:58)
[2019-06-02] MEDS: SODIUM CHLORIDE 0.9% INJ PRN (20:59)
--- NOTE | 2019-06-02 21:41 | PROGRESS NOTE ---
DATE: 06/02/2019 SUBJECTIVE: The patient is a little better. Still has swelling that is slowly decreasing. Not able to get the stone out and she has a lot of swelling underneath the Frenulum on the right side. OBJECTIVE: Vital Signs: Low-grade fever. Vitals are stable. HEENT: No change, but the swelling is decreasing. Rest of the exam is benign. INVESTIGATIONS: CBC: White cell count 10.6, hematocrit 33, platelets 224,000. ASSESSMENT AND PLAN: Right submandibular sialoadenitis. Currently the patient is on IV steroids and hydromorphone. Since the patient is eating well, I am going to decrease the IV fluids and will follow up. Obviously, Dr. Ponce wants to send her home with Levaquin and Medrol Dosepak and follow up outpatient in his office and will discuss with the family. Continue present treatment. LEVEL OF DOCUMENTATION: 25 minutes. cc: Daniel Galloway MD MTDD
[2019-06-03] MEDS: VANCOMYCIN 2 GM in NS 500 ML IV SCH (04:31)
[2019-06-03] MEDS: SOLU-MEDROL IV SCH ×3 (06:10→22:11)
[2019-06-03] MEDS: NEXIUM IV SCH (10:10)
[2019-06-03] MEDS: PHENERGAN IV PRN ×2 (10:11→23:38)
[2019-06-03] MEDS: LOVENOX SUBQ SCH (10:12)
[2019-06-03] MEDS: DILAUDID IV PRN ×2 (10:12→23:35)
[2019-06-03] MEDS: POTASSIUM CHLORIDE 10% LIQUID PO SCH (10:13)
--- NOTE | 2019-06-03 14:39 | CONSULTATION ---
DATE OF CONSULTATION: 06/03/2019 Patient seen and examined today. She is much better on the IV medications and steroids. There is starting to be some drainage from the floor of mouth. Floor of mouth is much more normal. With bimanual palpation I can begin to get pus to exude from the submandibular duct. A couple of small stones were also able to be removed from the duct with bimanual palpation and massage. This should help her to continue to improve. We will discuss with Dr. Galloway, but at this point, the obstruction has been resolved and she should improve and at his discretion can go home with p.o. medications and a Medrol Dosepak. cc: MD Daniel Valenzuela MD MTDD
--- NOTE | 2019-06-03 21:04 | PROGRESS NOTE ---
DATE: 06/03/2019 SUBJECTIVE: I appreciated Dr. Ponce's input. He did massage the submandibular gland and got a lot of pus as well as the stones out, and the patient's swelling is much improved. OBJECTIVE: Temperature is 98 degrees. Vitals are stable. Submandibular gland is slightly smaller, and at the frenulum, there is no discharge coming out. A lot of pus came out and significant improvement after stone came out. ASSESSMENT AND PLAN: Right submandibular sialoadenitis, improving, and tolerating the diet very well and discussed with the family at bedside. We will discharge home on Levaquin, Medrol Dosepak. See Dr. Ponce on Friday. Plan her to discharge tomorrow, slowly taper off IV fluids, out of the bed with physical therapy. LEVEL OF DOCUMENTATION: 25 minutes. cc: Daniel Galloway MD
[2019-06-03] MEDS: LEVAQUIN 500 MG/D5W 500 MG/100 ML IVPB IV SCH (22:11)
[2019-06-03] MEDS: NS 1,000 ML IV SCH (23:40)
[2019-06-04] MEDS: VANCOMYCIN 2 GM in NS 500 ML IV SCH (05:08)
[2019-06-04] MEDS: SOLU-MEDROL IV SCH (06:04)
[2019-06-04 08:15] VITALS: BP 155/72
[2019-06-04] MEDS: NEXIUM IV SCH (08:58)
[2019-06-04] MEDS: LOVENOX SUBQ SCH (08:58)
--- NOTE | 2019-06-06 10:51 | DISCHARGE SUMMARY ---
ADMISSION DATE: 05/26/2019 DISCHARGE DATE: 06/04/2019 DISCHARGE DIAGNOSES: 1. Sepsis from right submandibular sialoadenitis with elevation of white cell count 22,000, lactate 4.5, creatinine 1.3. 2. Other problems: Hyperlipidemia, essential tremor, acid reflux disease, metabolic syndrome, vitamin D deficiency, chronic back pain, acid reflux disease. CONSULTS: Dr. Ponce. BRIEF HISTORY: Please see the H and P that was done on 05/26/2019. In brief, she is a 68-year- old pleasant white female with above problems, was seen in my office the day before for right submandibular sialoadenitis. The patient was sent home on NSAIDs, antibiotics and outpatient CT of the neck. Sjogren syndrome antibodies were negative. She had recurrent problems in January. Subsequently, she was seen in the [facility] with not able to swallow, and with a lot of pain associated with fever, leukocytosis, elevated creatinine and lactate levels. The patient was transferred to the [facility] for hospital admission. HOSPITAL COURSE: 1. The patient was started on IV vancomycin and Levaquin, followed by IV fluids and Zofran for nausea. 2. DVT/GI prophylaxis was initiated with Lovenox and PPI. 3. ENT consult was obtained. 4. A CT scan of the neck showed submandibular sialoadenitis associated with stones, a 5 mm stone close to the floor of the mouth. Ancillary support was given secretogogues with lemon lozenges. Pain is adequately controlled with Dilaudid and nausea with Zofran. 5. Follow up antibiotics and hydration. White cell count came back normal as well as a renal function test. Blood cultures were negative. Dr. Ponce did bimanual squeezing of the floor of the mouth, extracted the stone. The swelling is improving and the symptoms are much improved after initiating the steroids. LABORATORY DATA: CBC: White cell count 10, hematocrit 33, platelets 224,000. Sodium 139, potassium 3.6, chloride 104, BUN 10, creatinine 0.7 glucose 106, and blood cultures were negative. DISCHARGE INSTRUCTIONS: Medication list: 1. Norvasc 10 mg daily. 2. Amlodipine 10 mg daily. 3. Synthroid 137 mcg daily. 4. Singulair 10 mg daily. 5. Prilosec 20 daily. 6. Vitamin D 50,000 units once a week. 7. Medrol Dosepak as directed. 8. Levaquin 500 daily for 10 days. 9. Zofran 4 mg q.6h as needed for nausea. Follow-up: With Dr. Ponce on Friday and as well as in my office in 1 week. cc: MD Kevin Wayne MD [facility] CENTERShailesh
== END 2019-06-04 09:54 | disposition home or self-care (01) | DRG 872 ==
LOC: P.ED 04:20 → 4N 06:13
PROVIDERS: ADMIT Internal Medicine; ATTEND Internal Medicine